=== PATIENT | male | born 1990 | race Caucasian/White ===

== ENCOUNTER 2017-08-21 07:43 | Day surgery (SDC) | payer OTHER ==
[2017-08-21] MEDS: BUPIVACAINE 0.25%/EPI (SDV) 30 ML INJ INJ
[2017-08-21] MEDS ORDERED: ONDANSETRON 4 MG INJ IV ×2 (10:00→11:00)
[2017-08-21] MEDS ORDERED: PROCHLORPERAZINE 10 MG INJ IV (10:00)
[2017-08-21] MEDS ORDERED: DIPHENHYDRAMINE 50 MG INJ IV (10:00)
[2017-08-21] MEDS ORDERED: HYDROmorphONE (0.2 MG/ML) 10ML SYG IV ×3 (10:00)
[2017-08-21] MEDS ORDERED: OXYCODONE/ACETAMINOPHEN (5/325) TAB PO ×4 (10:00→11:00)
[2017-08-21] MEDS ORDERED: FENTAnyl 50 MCG/ML VIAL IV ×3 (10:00)
[2017-08-21] MEDS ORDERED: MEPERIDINE 25 MG INJ IV (10:00)
[2017-08-21] MEDS ORDERED: LIDOCAINE 2% (SDV) 5 ML INJ (10:12)
[2017-08-21] MEDS ORDERED: PROPOFOL 20 ML ×2 (10:12→10:30)
[2017-08-21] MEDS ORDERED: SUCCINYLCHOLINE CHLORIDE 100 MG/5 ML SYG IV (10:12)
[2017-08-21] MEDS ORDERED: FENTAnyl 50 MCG/ML VIAL (10:13)
[2017-08-21] MEDS ORDERED: MIDAZOLAM 1 MG/ML 2 ML INJ (10:13)
[2017-08-21] MEDS ORDERED: DEXAMETHASONE 4 MG/ML 1 ML INJ (10:30)
[2017-08-21] MEDS ORDERED: ONDANSETRON 4 MG INJ (10:30)
[2017-08-21] MEDS ORDERED: ROCURONIUM 50 MG INJ (10:30)
[2017-08-21] MEDS ORDERED: CEFAZOLIN 1 GM INJ (10:34)
[2017-08-21] MEDS ORDERED: HYDROmorphONE 2 MG/ML SYG (10:42)
[2017-08-21] MEDS ORDERED: SUGAMMADEX SODIUM 200 MG/2 ML VIAL IV ×2 (10:43→10:54)
[2017-08-21] MEDS ORDERED: BUPIVACAINE 0.25%/EPI (SDV) 30 ML INJ (10:43)
[2017-08-21] MEDS ORDERED: KETOROLAC 30 MG INJ (10:50)
[2017-08-21] MEDS ORDERED: morphine 2 MG INJ IV (11:00)
== END 2017-08-21 12:25 | disposition home or self-care (01) ==
LOC: SDS 07:43
DX: L05.91 Pilonidal cyst without abscess (principal); E78.5 Hyperlipidemia, unspecified
CPT/HCPCS: 11772; 88304